=== PATIENT | female | born 1970 | race Caucasian/White ===

== ENCOUNTER 2017-08-22 16:50 | Emergency (ER) | payer BC, OTHER ==
[~2017-08-22 16:50] MED LIST: ALBU1AER INH; CETI10 PO; CLON.2 PO; MONT10TA2 PO
[2017-08-22 16:53] VITALS: BP 212/104; PULSE 88; RESP 16; TEMP 98.4; O2SAT 98
[2017-08-22 17:58] LABS: BASOPHIL % 0.4 % (0.0-2.0); EOSINOPHIL # 0.2 TH/MM3 (0-0.4); HEMATOCRIT 38.2 % (35.0-46.0); HEMO FLAGS DIFF FINAL; LYMPH % 12.3 % (9.0-44.0); LYMPHOCYTE # 1.1 TH/MM3 (1.0-4.8); MEAN CELL VOLUME 88.5 FL (80.0-100.0); MEAN CORPUSCULAR HEMOGLOBIN 30.1 PG (27.0-34.0); MONO % 6.2 % (0.0-8.0); NEUT % 79.1 % (16.0-70.0); PLATELET COUNT 291 TH/MM3 (150-450); RED BLOOD COUNT 4.31 MIL/MM3 (4.00-5.30); RED CELL DISTRIBUTION WIDTH 14.5 % (11.6-17.2); WHITE BLOOD COUNT 8.9 TH/MM3 (4.0-11.0)
[2017-08-22 18:22] LABS: BICARBONATE 28.2 MEQ/L (21.0-32.0); POTASSIUM 3.5 MEQ/L (3.5-5.1)
[2017-08-22 19:30] VITALS: BP 201/100; PULSE 82; RESP 16
[2017-08-22] MEDS ORDERED: SODIUM CHLOR 0.9% 1000 ML INJ 1,000 ML IV ONE (19:30)
[2017-08-22] MEDS ORDERED: KETOROLAC TROMETHAMINE 30 MG/ML (IVP) VIAL IV PUSH ONE (19:30)
[2017-08-22] MEDS ORDERED: METOCLOPRAMIDE HCL 10 MG/2 ML VIAL IV PUSH ONE (19:30)
--- NOTE | 2017-08-22 19:33 | PD ---
HPI Chief Complaint: Headache Time Seen by Provider: 19:22 Travel History International Travel<30 days: No Contact w/Intl Traveler<30days: No Traveled to known affect area: No History of Present Illness HPI 47-year-old female here for evaluation of headache. The patient reports she has had a continuous headache for the last 10 days. She points to the front and back of her head and describes the headache is pulsatile. Headache was gradual in onset, currently 3 out of 10, associated with photophobia. No fevers or chills. Headache is intermittently worse at times. She has tried Advil, Tylenol, and Excedrin with only mild relief of symptoms. No paresthesias or motor deficits. PFSH Past Medical History ADHD: Yes Asthma: Yes Cardiovascular Problems: Yes (HTN) Social History Alcohol Use: No Tobacco Use: No Substance Use: No Allergies-Medications (Allergen,Severity, Reaction): Coded Allergies: Sulfa (Sulfonamide Antibiotics) (Unverified Allergy, Severe, 05/10/17) Reported Meds & Prescriptions Reported Meds & Active Scripts Active Reported Proair Hfa (Albuterol Sulfate) 8.5 Gm Aero 1 Puff INH Q6H PRN * SHAKE WELL BEFORE USE * Singulair (Montelukast Sodium) 10 Mg Tab 10 Mg PO HS Zyrtec 10 Mg Tab (Cetirizine HCl) 10 Mg Tab 10 Mg PO DAILY Catapres 0.2 mg (Clonidine HCl) 0.2 Mg Tab 1 Tab PO BID Review of Systems Except as stated in HPI: all other systems reviewed are Neg Physical Exam Narrative GENERAL: Well-developed, well-nourished, overweight, comfortable, no apparent distress. SKIN: Focused skin assessment warm/dry. No rash. HEAD: Atraumatic. Normocephalic. EYES: Pupils equal, round, 4 mm, reactive to light. EOMI. No scleral icterus. No injection or drainage. ENT: Mucous membranes pink and moist. NECK: Trachea midline. No JVD. No nuchal rigidity. CARDIOVASCULAR: Regular rate and rhythm. No murmur appreciated. RESPIRATORY: No accessory muscle use. Clear to auscultation. Breath sounds equal bilaterally. GASTROINTESTINAL: Abdomen soft, non-tender, nondistended. MUSCULOSKELETAL: No obvious deformities. No clubbing. No cyanosis. No edema. NEUROLOGICAL: Awake and alert. No obvious cranial nerve deficits. Motor grossly within normal limits. Normal speech. PSYCHIATRIC: Appropriate mood and affect; insight and judgment normal. Data Data Last Documented VS Vital Signs Date Time Temp Pulse Resp B/P (MAP) Pulse Ox O2 Delivery O2 Flow Rate FiO2 08/22/17 16:53 98.4 88 16 212/104 (140) 98 Orders Orders Complete Blood Count With Diff (08/22/17 17:15) Basic Metabolic Panel (Bmp) (08/22/17 17:15) Urinalysis - C+S If Indicated (08/22/17 17:15) Ed Urine Pregnancytest Poc (08/22/17 17:15) Ct Brain W/O Iv Contrast(Rout) (08/22/17 ) Metoclopramide Inj (Reglan Inj) (08/22/17 19:30) Ketorolac Inj (Toradol Inj) (08/22/17 19:30) Sodium Chlor 0.9% 1000 Ml Inj (Ns 1000 M (08/22/17 19:30) Prochlorperazine Inj (Compazine Inj) (08/22/17 22:15) Hydrochlorothiazide (Hydrodiuril) (08/22/17 23:30) Labs Laboratory Tests Test 08/22/17 17:34 White Blood Count 8.9 TH/MM3 Red Blood Count 4.31 MIL/MM3 Hemoglobin 13.0 GM/DL Hematocrit 38.2 % Mean Corpuscular Volume 88.5 FL Mean Corpuscular Hemoglobin 30.1 PG Mean Corpuscular Hemoglobin Concent 34.0 % Red Cell Distribution Width 14.5 % Platelet Count 291 TH/MM3 Mean Platelet Volume 8.0 FL Neutrophils (%) (Auto) 79.1 % Lymphocytes (%) (Auto) 12.3 % Monocytes (%) (Auto) 6.2 % Eosinophils (%) (Auto) 2.0 % Basophils (%) (Auto) 0.4 % Neutrophils # (Auto) 7.0 TH/MM3 Lymphocytes # (Auto) 1.1 TH/MM3 Monocytes # (Auto) 0.6 TH/MM3 Eosinophils # (Auto) 0.2 TH/MM3 Basophils # (Auto) 0.0 TH/MM3 CBC Comment DIFF FINAL Differential Comment Blood Urea Nitrogen 15 MG/DL Creatinine 0.84 MG/DL Random Glucose 160 MG/DL Calcium Level 8.6 MG/DL Sodium Level 140 MEQ/L Potassium Level 3.5 MEQ/L Chloride Level 104 MEQ/L Carbon Dioxide Level 28.2 MEQ/L Anion Gap 8 MEQ/L Estimat Glomerular Filtration Rate 72 ML/MIN [facility] Medical Decision Making Medical Screen Exam Complete: Yes Emergency Medical Condition: Yes Differential Diagnosis Tension headache, cluster headache, migraine headache, SAH/meningitis/ encephalitis unlikely, pseudotumor cerebri Narrative Course Initial vital signs show heart rate 88, blood pressure 212/104, pulse ox 98% on room air, oral temp of 98.4F. CBC is unremarkable. BMP is remarkable for random glucose 160. CT head: CONCLUSION: 1. 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 2. Otherwise negative Patient was given a liter of IV fluids, IV Toradol, and IV Reglan, and on reassessment she states that there was only slight improvement in her headache. She was given a dose of IV Compazine and reports that her headache is improved even more. Repeat blood pressure still elevated at 210/98. Patient shows me a blood pressure log of hers and shows that she does have consistently elevated blood pressures. She is not displaying any signs or symptoms of hypertensive crisis. Plan is to start her on hydrochlorothiazide and have her follow-up with her primary care physician this week. So give her prescription for Fioricet. She was informed on when to return to the emergency department. Diagnosis Primary Impression: Headache Qualified Codes: R51 - Headache Additional Impression: Hypertension Qualified Codes: I10 - Essential (primary) hypertension Referrals: Primary Care Physician 3 days Additional Instructions: Follow-up with your primary care physician this week. Return to the emergency department for worsening symptoms or any other concerns. Scripts Hydrochlorothiazide (Hydrochlorothiazide) 25 Mg Tab 25 MG PO DAILY, #30 TAB 0 Refills Prov: Scott Smith MD 08/22/17 Aikqevludi-Kkbiytlkfbgkx-Hxippigz (Fioricet) 50-300-40 Mg Cap 1 CAP PO Q4H Y for HEADACHE, #10 CAP 0 Refills Prov: Scott Smith MD 08/22/17 Disposition: 01 DISCHARGE HOME Condition: Stable Scott Smith MD Aug 22, 2017 19:33
--- NOTE | 2017-08-22 21:34 | RADRPT ---
EXAM DATE/TIME: 08/22/2017 19:37 [facility] COMPARISON: No previous studies available for comparison. INDICATIONS : Cephalgia. RADIATION DOSE: 56.35 CTDIvol (mGy) MEDICAL HISTORY : None SURGICAL HISTORY : None. ENCOUNTER: Initial ACUITY: 2 weeks PAIN SCALE: 8/10 LOCATION: cranial TECHNIQUE: Multiple contiguous axial images were obtained of the head. Using automated exposure control and adj ustment of the mA and/or kV according to patient size, radiation dose was kept as low as reasonably a chievable to obtain optimal diagnostic quality images. DICOM format image data is available electro nically for review and comparison. FINDINGS: CEREBRUM: The ventricles are normal for age. 5 mm old lacunar type infarct or parenchymal cyst in the posterio r left basal ganglia. No evidence of midline shift, mass lesion, hemorrhage or acute infarction. No extra-axial fluid collections are seen. POSTERIOR FOSSA: The cerebellum and brainstem are intact. The 4th ventricle is midline. The cerebellopontine angle i s unremarkable. EXTRACRANIAL: The visualized portion of the orbits is intact. SKULL: The calvaria is intact. No evidence of skull fracture. CONCLUSION: 1. 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 2. Otherwise negative Chris Mcdaniel MD on August 22, 2017 at 21:31 Board Certified Radiologist. This report was verified electronically.
[2017-08-22] MEDS ORDERED: PROCHLORPERAZINE INJ 10 MG/2 ML VIAL IV PUSH ONE (22:15)
[2017-08-22 23:00] VITALS: BP 210/90; PULSE 79; RESP 16
[2017-08-22] MEDS ORDERED: HYDR25TA5 PO (23:29)
[2017-08-22] MEDS ORDERED: BUTA1CAP PO (23:29)
[2017-08-22] MEDS ORDERED: HYDROCHLOROTHIAZIDE 25 MG TAB PO ONE (23:30)
== END 2017-08-22 23:40 | disposition home or self-care (01) ==
LOC: NEPD 16:50
DX: R51 Headache (principal); I10 Essential (primary) hypertension; G93.0 Cerebral cysts; F90.9 Attention-deficit hyperactivity disorder, unspecified type; J45.909 Unspecified asthma, uncomplicated; Z79.899 Other long term (current) drug therapy; Z88.2 Allergy status to sulfonamides
CPT/HCPCS: 70450; 80048; 84703; 85025; 96361; 96374; 96375; 99285; J0780; J1885; J2765; J7030